=== PATIENT | male | born 1990 | race Caucasian/White ===

== ENCOUNTER 2016-10-31 12:24 | Emergency (ER) | payer MEDICAID, OTHER ==
[~2016-10-31] VITALS: Ht 205.7 cm; Wt 122.2 kg
[2016-10-31 12:26] VITALS: BP 138/85
[2016-10-31] MEDS ORDERED: KETOROLAC 30 MG/1 ML IM ONE (13:00)
[2016-10-31] MEDS ORDERED: ONDANSETRON ODT 4 MG PO ONE (13:00)
[2016-10-31 13:11] LABS: HEMATOCRIT 45.5 % (39.2-51.8); HEMOGLOBIN 15.4 g/dL (13.7-18.0); WHITE BLOOD COUNT 8.9 x10^3/uL (3.4-10)
[2016-10-31] MEDS ORDERED: ONDANSETRON ODT 4 MG ONE (13:13)
[2016-10-31] MEDS ORDERED: KETOROLAC 30 MG/1 ML ONE (13:13)
[2016-10-31 13:21] LABS: ASPARTATE AMINO TRANSFERASE 24 U/L (15-37); BLOOD UREA NITROGEN 12 mg/dL (7-18)
== END 2016-10-31 14:42 | disposition home or self-care (01) ==
LOC: ED 13:27
DX: I86.1 Scrotal varices (principal)
CPT/HCPCS: 36415; 74176; 76870; 80053; 81003; 85025; 96372; 99285; J1885; Q0162